=== PATIENT | female | born 1950 | race Caucasian/White ===

== ENCOUNTER 2017-02-19 21:26 | Emergency (ER) | payer MEDICARE, OTHER ==
[~2017-02-19 21:26] MED LIST: ZESTRIL2.5 MG PO
[2017-02-19 23:35] LABS: HEMOGLOBIN 13.6 gm/dl (12.3-15.3); RED BLOOD COUNT 4.06 M/UL (4.00-5.10); WHITE BLOOD COUNT 10.3 K/UL (4.5-11.0)
== END 2017-02-20 02:04 | disposition home or self-care (01) ==
LOC: ER1 21:26
PROVIDERS: Emergency Medicine
DX: E11.65 Type 2 diabetes mellitus with hyperglycemia (principal); I10 Essential (primary) hypertension; J44.9 Chronic obstructive pulmonary disease, unspecified; I25.10 Atherosclerotic heart disease of native coronary artery without angina pectoris; Z95.5 Presence of coronary angioplasty implant and graft; Z88.0 Allergy status to penicillin; Z88.1 Allergy status to other antibiotic agents; Z79.84 Long term (current) use of oral hypoglycemic drugs; Z79.899 Other long term (current) drug therapy
CPT/HCPCS: 36415; 71020; 80053; 81001; 82009; 82962; 83690; 84484; 85025; 87086; 93005; 96360; 99285; J7030

== ENCOUNTER 2020-12-10 17:11 | Emergency (ER) | payer MEDICARE, OTHER ==
[~2020-12-10 17:11] MED LIST changes: +BENADRYL 25MG C25 MG PO; +MEDROL4 MG PO; +PREDNISONE20 MG PO; +ZANTAC150 MG PO
[2020-12-10 19:36] LABS: HEMOGLOBIN 14.9 gm/dl (12.3-15.3); RED BLOOD COUNT 4.36 M/UL (4.00-5.10); WHITE BLOOD COUNT 7.6 K/UL (4.5-11.0)
[2020-12-10 19:53] LABS: BUN/CREATININE RATIO 17 (0-10)
[2020-12-10] MEDS ORDERED: DOXYCYCLINE HY100 M2 PO (21:12)
[2020-12-10] MEDS ORDERED: MYCOSTATIN OINT15 GM TOP (21:12)
== END 2020-12-10 21:20 | disposition home or self-care (01) ==
LOC: ER1 17:11
PROVIDERS: Physician Assistant Medical
DX: J44.1 Chronic obstructive pulmonary disease with (acute) exacerbation (principal); E11.9 Type 2 diabetes mellitus without complications; E78.5 Hyperlipidemia, unspecified; E03.9 Hypothyroidism, unspecified; Z20.822 Contact with and (suspected) exposure to COVID-19; I25.2 Old myocardial infarction; Z79.899 Other long term (current) drug therapy; Z88.0 Allergy status to penicillin; Z88.1 Allergy status to other antibiotic agents; Z79.4 Long term (current) use of insulin; Z90.49 Acquired absence of other specified parts of digestive tract
CPT/HCPCS: 0240U; 36415; 36600; 71045; 80053; 82803; 85025; 93005; 94664; 96372; 99285; J2930

== ENCOUNTER 2021-03-25 17:05 | Emergency (ER) | payer MEDICARE, OTHER ==
[~2021-03-25 17:05] MED LIST changes: +DOXYCYCLINE HY100 M2 PO; +MYCOSTATIN OINT15 GM TOP
[2021-03-25 20:48] LABS: HEMOGLOBIN 14.6 gm/dl (12.3-15.3); RED BLOOD COUNT 4.29 M/UL (4.00-5.10); WHITE BLOOD COUNT 5.7 K/UL (4.5-11.0)
[2021-03-25 21:26] LABS: BUN/CREATININE RATIO 15 (0-10)
[2021-03-26] MEDS ORDERED: TESSALON PERLE100 MG PO (00:58)
[2021-03-26] MEDS ORDERED: VENTOLIN HFA 66.7 GM INH (00:58)
[2021-03-26] MEDS ORDERED: DOXYCYCLINE MO100 MG PO (00:58)
[2021-03-26] MEDS ORDERED: PREDNISONE 50 M50 MG PO (00:58)
== END 2021-03-26 01:15 | disposition home or self-care (01) ==
LOC: ER1 17:05
PROVIDERS: Physician Assistant Medical
DX: J44.1 Chronic obstructive pulmonary disease with (acute) exacerbation (principal); E11.9 Type 2 diabetes mellitus without complications; Z90.710 Acquired absence of both cervix and uterus; Z88.0 Allergy status to penicillin; Z88.1 Allergy status to other antibiotic agents; F17.290 Nicotine dependence, other tobacco product, uncomplicated; Z20.822 Contact with and (suspected) exposure to COVID-19
CPT/HCPCS: 0240U; 36600; 71045; 80053; 82803; 83880; 84484; 85025; 94640; 94664; 96372; 99285; J2930

== ENCOUNTER 2021-05-07 21:23 | Emergency (ER) | payer MEDICARE, OTHER ==
[~2021-05-07 21:23] MED LIST changes: +DOXYCYCLINE MO100 MG PO; +PREDNISONE 50 M50 MG PO; +TESSALON PERLE100 MG PO; +VENTOLIN HFA 66.7 GM INH
[2021-05-07 22:53] LABS: HEMOGLOBIN 12.3 gm/dl (12.3-15.3); RED BLOOD COUNT 3.77 M/UL (4.00-5.10); WHITE BLOOD COUNT 2.8 K/UL (4.5-11.0)
[2021-05-07 23:23] LABS: BUN/CREATININE RATIO 9 (0-10)
[2021-05-08] MEDS ORDERED: MEDROL DOSEPAK 24 MG PO (00:59)
[2021-05-08] MEDS ORDERED: DOXYCYCLINE HY100 M2 PO (00:59)
[2021-05-08] MEDS ORDERED: ZOFRAN4 MG PO (00:59)
[2021-05-08] MEDS ORDERED: TESSALON PERLE100 MG PO (00:59)
== END 2021-05-08 02:00 | disposition home or self-care (01) ==
LOC: ER1 21:23
PROVIDERS: Physician Assistant Medical
DX: U07.1 COVID-19 (principal); E87.6 Hypokalemia; I11.9 Hypertensive heart disease without heart failure; J44.9 Chronic obstructive pulmonary disease, unspecified
CPT/HCPCS: 36600; 71045; 80053; 82550; 82553; 82803; 83605; 83874; 84484; 85025; 87040; 93005; 99284

== ENCOUNTER → 2021-07-16 | Outpatient (CLI) | payer MEDICARE, OTHER ==
[~2021-07-16] MED LIST changes: +MEDROL DOSEPAK 24 MG PO; +ZOFRAN4 MG PO
== END ==
LOC: EXRD 11:29
DX: U07.1 COVID-19 (principal); R91.8 Other nonspecific abnormal finding of lung field
CPT/HCPCS: 71046

== ENCOUNTER → 2021-09-09 | Outpatient (CLI) | payer MEDICARE, OTHER | LOC: KOH-I 08-07 14:00 | DX: F17.210 Nicotine dependence, cigarettes, uncomplicated (principal); R91.8 Other nonspecific abnormal finding of lung field; J98.11 Atelectasis | CPT/HCPCS: 71271 ==

== ENCOUNTER → 2021-10-15 | Day surgery (SDC) | payer MEDICARE, OTHER ==
[~2021-10-15] MED LIST changes: +AMMONIUM LACTA225 GM TP; +AZELASTINE205.5 MCG/; +BREZTRI AEROS10.7 GM INH; +ESCITALOPRAM OX20 MG PO; +FAMOTIDINE40 MG PO; +FLONASE 0.05% N16 GM; +FOLIC ACID1 MG PO; +GABAPENTIN300 MG PO; +GLUCOPHAGE 850850 MG PO; +HYDROXYZINE HCL25 MG PO; +ICOSAPENT ETHYL1 GM PO; +JARDIANCE10 MG PO; +KLONOPIN TAB 00.5 MG PO; +LEVOTHYROXINE88 MCG PO; +LOPRESSOR 50 MG50 MG PO; +MACROBID 100 M100 MG PO; +METHOCARBAMOL500 MG PO; +MIRTAZAPINE45 MG PO; +PROTONIX 40 MG40 M1 PO; +VITAMIN B-121000 MC2 SL; +VITAMIN D350 MC3 PO
== END | disposition home or self-care (01) ==
LOC: OR 05:48
DX: R19.5 Other fecal abnormalities (principal); D12.4 Benign neoplasm of descending colon; K57.30 Diverticulosis of large intestine without perforation or abscess without bleeding; J45.909 Unspecified asthma, uncomplicated; J44.9 Chronic obstructive pulmonary disease, unspecified; E11.22 Type 2 diabetes mellitus with diabetic chronic kidney disease; I12.9 Hypertensive chronic kidney disease with stage 1 through stage 4 chronic kidney disease, or unspecified chronic kidney disease; N18.30 Chronic kidney disease, stage 3 unspecified; E11.42 Type 2 diabetes mellitus with diabetic polyneuropathy; E11.36 Type 2 diabetes mellitus with diabetic cataract; H26.9 Unspecified cataract; K21.9 Gastro-esophageal reflux disease without esophagitis; E03.9 Hypothyroidism, unspecified; E78.1 Pure hyperglyceridemia; E78.00 Pure hypercholesterolemia, unspecified; I73.9 Peripheral vascular disease, unspecified; I25.2 Old myocardial infarction; F17.200 Nicotine dependence, unspecified, uncomplicated; Z85.3 Personal history of malignant neoplasm of breast; Z86.16 Personal history of COVID-19; Z88.1 Allergy status to other antibiotic agents; Z88.0 Allergy status to penicillin; Z88.2 Allergy status to sulfonamides; Z79.82 Long term (current) use of aspirin; Z95.5 Presence of coronary angioplasty implant and graft; Z90.49 Acquired absence of other specified parts of digestive tract; Z90.710 Acquired absence of both cervix and uterus; Z20.822 Contact with and (suspected) exposure to COVID-19
CPT/HCPCS: 82962; J2704; J7030